=== PATIENT | female | born 2000 | race Caucasian/White ===

== ENCOUNTER 2018-02-08 15:01 | Emergency (ER) | payer MEDICAID ==
[~2018-02-08] VITALS: Ht 152.4 cm; Wt 64.0 kg
[~2018-02-08 15:01] MED LIST: IBUP-1051 PO
[2018-02-08 15:11] VITALS: BP 125/69
[2018-02-08] MEDS ORDERED: HYDROcodone/acetaminophen 10/325mg tab PO ONE (17:15)
[2018-02-08] MEDS ORDERED: ondansetron 4mg rapidly disintigrating tab PO ONE (17:15)
[2018-02-08] MEDS ORDERED: amox tr/potassium clavulanate 875/125mg TAB PO ONE (17:15)
[2018-02-08] MEDS ORDERED: IBUP-1985 PO (17:52)
[2018-02-08] MEDS ORDERED: ONDA4TAB12 PO (17:52)
[2018-02-08] MEDS ORDERED: HYDR-3965 PO (17:52)
[2018-02-08] MEDS ORDERED: AMOX-422 PO (17:52)
== END 2018-02-08 18:17 | disposition home or self-care (01) ==
LOC: ER 15:02
DX: S61.412A Laceration without foreign body of left hand, initial encounter (principal); W54.0XXA Bitten by dog, initial encounter; Y93.89 Activity, other specified; Y92.89 Other specified places as the place of occurrence of the external cause; Y99.8 Other external cause status
CPT/HCPCS: 73130; 99284